=== PATIENT | male | born 1955 | race Caucasian/White ===

== ENCOUNTER 2018-08-03 10:05 | Day surgery (SDC) | payer OTHER, SELFPAY ==
[2018-08-03] VITALS (7 sets, daily range): BP systolic 117–138; BP diastolic 86–98; PULSE 85–89; RESP 16–18; TEMP 36.8–37; O2SAT 92–97; BMI 33.1
--- NOTE | 2018-08-03 11:40 | RAD_ITS ---
PROCEDURE: Caudal block. DATE OF EXAMINATION: August 03, 2018. INDICATION: Male, 63 years old. FLUOROSCOPY TIME (if supplied): (0:06) minutes/seconds. 2 lateral views were obtained. Intraoperative imaging provided for caudal block. RAD/Fluor Guidance for Spine Inj IMPRESSION: Intraoperative imaging provided for caudal block. Electronically Signed: Diogenes Quiles, at 12:40 EDT , Service support ,
[2018-08-03] MEDS: MethylPREDNISolone Acetate 80 MG/ML Vial (12:03)
[2018-08-03] MEDS: Bupivacaine 0.25% 30 ML Vial (12:03)
--- NOTE | 2018-08-03 12:49 | OP.PCM_ITS ---
Problem List (1) Radiculopathy of lumbosacral region Status: Chronic (2) DDD (degenerative disc disease), lumbosacral Status: Chronic Report of Operation Date of Procedure: 08/03/18 Pre-Operative Diagnosis: Lumbosacral radiculopathy, lumbosacral degenerative disc disease, lumbosacral spinal stenosis Post-Operative Diagnosis: Lumbosacral radiculopathy, lumbosacral degenerative disc disease, lumbosacral spinal stenosis Surgery/Procedure Performed:: Diagnostic/therapeutic caudal epidural steroid injection Description of Surgical Findings:: PROCEDURE: Diagnostic/therapeutic caudal epidural steroid injection PREOPERATIVE DIAGNOSIS: Lumbosacral radiculopathy, lumbosacral degenerative disc disease, lumbosacral spinal stenosis POSTOPERATIVE DIAGNOSIS: Lumbosacral radiculopathy, lumbosacral degenerative disc disease, lumbosacral spinal stenosis ANESTHESIA: MAC COMPLICATIONS: None BLOOD LOSS: Minimal PROCEDURE IN DETAIL: History and physical today was reviewed. Risks and benefits of the procedure were explained. The patient understood, agreed to our procedure, and informed consent was obtained. IV inserted per routine protocol. The patient was taken to the operating room, placed in a prone position with a pillow positioned underneath the abdomen. The lower back area was prepped and draped in a sterile fashion using iodine x3 u nder fluoroscopy guidance on the lateral view the caudal space was identified the skin and subcutaneous tissue and size approximately 3 cc of 1% lidocaine using a 25-gauge regular needle under direct visualization fluoroscopy using a 22-gauge 3-1/2 inch spinal needle the needle was advanced via the skin through the sacral hiatus tip of the needle passed through the sacrococcygeal ligament advanced approximately S4 area after negative aspiration for blood or CSF a total of 3 cc of contrast were injected to confirm correct placement of the needle as well as cephalad spread the spread was followed to approximately L5 area after negative aspiration for blood or CSF and confirmation AP as well as lateral view a total of 15 cc of preservative-free 0.125% Marcaine with 80 mg of Depo-Medrol were injected easily. The needles were then removed intact. The patient experienced no signs or symptoms intrathecal, intravascular injection. The patient experienced no paraesthesia. The procedure was completed without any apparent difficult, any complication. The patient appeared to tolerate well. ASSESSMENT AND PLAN: This is a 63-year-old male with lumbosacral radiculopathy, lumbosacral degenerative disc disease, lumbosacral spinal stenosis status post diagnostic/therapeutic caudal epidural steroid injection. The patient will continue his current medications. The patient will follow in approximately 2 weeks for possible repeat of the procedure if indicated.
== END 2018-08-03 13:00 | disposition home or self-care (01) ==
LOC: SDC 10:08 → AC 11:48
PROVIDERS: Family Provider Family Medicine; PCP Family Medicine; Referring Provider Anesthesiology Pain Medicine; Visit Provider Anesthesiology Pain Medicine
PROC: 3E0S3BZ Introduction of Anesthetic Agent into Epidural Space, Percutaneous Approach (ICD-10-PCS; CPT 62282; principal; 2018-08-03 11:35)
DX: M51.17 Intervertebral disc disorders with radiculopathy, lumbosacral region (principal); M48.07 Spinal stenosis, lumbosacral region; F32.9 Major depressive disorder, single episode, unspecified; F41.9 Anxiety disorder, unspecified; Z79.899 Other long term (current) drug therapy; I10 Essential (primary) hypertension; K21.9 Gastro-esophageal reflux disease without esophagitis; Z79.891 Long term (current) use of opiate analgesic
CPT/HCPCS: 01992; 62323; 64483; 77003; J7120; J3490